=== PATIENT | female | born 1965 | race Caucasian/White ===

== ENCOUNTER → 2018-02-05 | Outpatient (CLI) | payer BC ==
[2018-02-05 08:19] LABS: BASO % 0.4 % (0.0-1.0); EOS # 0.2 10^3/uL (0.0-0.50); EOS % 2.8 % (0.0-3.0); HEMATOCRIT 40.3 % (36.0-47.0); HEMOGLOBIN 13.6 g/dl (12.0-15.5); IMMATURE GRANULOCYTE % 0.2 % (0-3.0); LYMPH # 1.5 10^3/uL (1.5-4.5); LYMPH % 27.2 % (24.0-44.0); MEAN CORPUSCULAR HEMOGLOBIN 29.8 pg (27.0-33.0); MEAN CORPUSCULAR HGB CONC 33.7 g/dl (32.0-36.5); MEAN CORPUSCULAR VOLUME 88.2 fl (80.0-96.0); MONO # 0.4 10^3/uL (0.0-0.8); MONO % 7.7 % (0.0-5.0); NEUTROPHILS # 3.4 10^3/uL (1.8-7.7); NEUTROPHILS % 61.7 % (36.0-66.0); PLATELET COUNT, AUTOMATED 187 10^3/uL (150-450); RED BLOOD COUNT 4.57 10^6/uL (4.00-5.40); RED CELL DISTRIBUTION WIDTH 13.1 % (11.5-14.5); WHITE BLOOD COUNT 5.4 10^3/uL (4.0-10.0)
[2018-02-05 08:45] LABS: ALBUMIN 3.7 GM/DL (3.2-5.2); ALBUMIN/GLOBULIN RATIO 1.23 (1.00-1.93); ALKALINE PHOSPHATASE 72 U/L (45-117); ALT/SGPT 25 U/L (12-78); ANION GAP 5 MEQ/L (8-16); AST/SGOT 9 U/L (7-37); BILIRUBIN,TOTAL 0.6 MG/DL (0.2-1.0); BLOOD UREA NITROGEN 16 MG/DL (7-18); CALCIUM LEVEL 8.5 MG/DL (8.5-10.1); CARBON DIOXIDE LEVEL 30 MEQ/L (21-32); CHLORIDE LEVEL 109 MEQ/L (98-107); CHOLESTEROL LEVEL 179 MG/DL (<200); CHOLESTEROL RISK RATIO 3.977 (<5); CREATININE FOR GFR 0.66 MG/DL (0.55-1.30); FREE T4 0.96 NG/DL (0.76-1.46); GLOMERULAR FILTRATION RATE > 60.0 (>51); GLUCOSE, FASTING 127 MG/DL (70-100); HDL CHOLESTEROL 45 MG/DL (>40); LDL CHOLESTEROL 116.6 MG/DL (<100); NON-HDL-C 134 MG/DL; POTASSIUM SERUM 4.3 MEQ/L (3.5-5.1); SODIUM LEVEL 144 MEQ/L (136-145); TOTAL PROTEIN 6.7 GM/DL (6.4-8.2); TRIGLYCERIDES LEVEL 87 MG/DL (<150)
== END ==
LOC: M LAB 07:48
DX: Z13.220 Encounter for screening for lipoid disorders (principal); I10 Essential (primary) hypertension; E66.3 Overweight
CPT/HCPCS: 84443

== ENCOUNTER 2018-03-31 09:57 | Day surgery (SDC) | payer BC ==
[2018-03-31] MEDS: NS 1,000 ML IV (06:00)
[2018-03-31] MEDS ORDERED: LIDOCAINE 2% INJ 100 MG/5 ML SDV (FOR ANES.) As Ordered (11:01)
[2018-03-31] MEDS ORDERED: PROPOFOL 200 MG/20 ML VIAL As Ordered (11:01)
== END 2018-03-31 12:05 | disposition home or self-care (01) ==
LOC: M OPP 09:57
DX: Z12.11 Encounter for screening for malignant neoplasm of colon (principal); D12.3 Benign neoplasm of transverse colon; K64.0 First degree hemorrhoids; I10 Essential (primary) hypertension; K21.9 Gastro-esophageal reflux disease without esophagitis; R12 Heartburn; M19.90 Unspecified osteoarthritis, unspecified site; Z87.39 Personal history of other diseases of the musculoskeletal system and connective tissue; Z88.8 Allergy status to other drugs, medicaments and biological substances; Z79.899 Other long term (current) drug therapy
CPT/HCPCS: 45385

== ENCOUNTER → 2018-07-29 | Outpatient (CLI) | payer BC ==
[~2018-07-29] MED LIST: IBUP80TA PO; MULTTAB4 PO; NORV5TAB PO; PERC2.5T PO
--- NOTE | 2018-07-29 10:00 | REPMRS ---
Patient History The patient states she has not had a clinical breast exam in over a year. Patient is postmenopausal. Family history of breast cancer at age 50 or over in paternal aunt, breast cancer at age 50 or over in paternal aunt, prostate cancer in paternal uncle. No Hormone Replacement Therapy Digital Woman Screen Mammo: July 29, 2018 - Exam #: [id number] Bilateral CC and MLO view(s) were taken. Technologist: Maddie Catherine, Technologist Prior study comparison: April 06, 2014, digital mammo diagnostic bilateral, performed at [facility]. March 15, 2013, digital woman screen mammo performed at [facility]. August 22, 2008, bilateral screening mammogram performed at [facility]. FINDINGS: There are scattered fibroglandular densities. There is a fairly large raised mole at projects over the right axilla unchanged. There has been no change in the appearance of the mammogram from the prior studies. There is a mild amount of scattered fibroglandular density which is fairly symmetric. There is no interval development of dominant mass, architectural distortion, or clustered microcalcification suggestive of malignancy. 3-D tomosynthesis shows no additional findings. Assessment: BI-RADS/ACR category 2 mammogram. Benign Findings. Recommendation Routine screening mammogram of both breasts in 1 year (for women over age 40). This patient's Lifetime Breast Cancer RIsk is estimated at 11.2 %. This mammogram was interpreted with the aid of an FDA-approved computer-aided dectection system. Electronically Signed By: David Velazquez MD 07/29/18 [id number]
== END ==
LOC: M WHC 06:44
PROVIDERS: ATTEND Physician Assistant Medical
DX: Z12.31 Encounter for screening mammogram for malignant neoplasm of breast (principal)

== ENCOUNTER → 2018-11-02 | Outpatient (CLI) | payer BC ==
[2018-11-02 08:26] LABS: BASO % 0.7 % (0.0-1.0); EOS # 0.2 10^3/uL (0.0-0.50); EOS % 2.8 % (0.0-3.0); HEMATOCRIT 40.7 % (36.0-47.0); HEMOGLOBIN 13.5 g/dl (12.0-15.5); LYMPH # 1.4 10^3/uL (1.5-4.5); LYMPH % 26.5 % (24.0-44.0); MEAN CORPUSCULAR HEMOGLOBIN 29.7 pg (27.0-33.0); MEAN CORPUSCULAR HGB CONC 33.2 g/dl (32.0-36.5); MEAN CORPUSCULAR VOLUME 89.5 fl (80.0-96.0); MONO # 0.5 10^3/uL (0.0-0.8); MONO % 8.5 % (0.0-5.0); NEUTROPHILS # 3.3 10^3/uL (1.8-7.7); NEUTROPHILS % 61.3 % (36.0-66.0); PLATELET COUNT, AUTOMATED 192 10^3/uL (150-450); RED BLOOD COUNT 4.55 10^6/uL (4.00-5.40); WHITE BLOOD COUNT 5.4 10^3/uL (4.0-10.0)
[2018-11-02 08:52] LABS: ALT/SGPT 29 U/L (12-78); BILIRUBIN,TOTAL 0.6 MG/DL (0.2-1.0); BLOOD UREA NITROGEN 14 MG/DL (7-18); CALCIUM LEVEL 8.8 MG/DL (8.5-10.1); CARBON DIOXIDE LEVEL 29 MEQ/L (21-32); CHLORIDE LEVEL 106 MEQ/L (98-107); CREATININE FOR GFR 0.66 MG/DL (0.55-1.30); GLOMERULAR FILTRATION RATE > 60.0 (>51); GLUCOSE, FASTING 90 MG/DL (70-100); POTASSIUM SERUM 3.6 MEQ/L (3.5-5.1); SODIUM LEVEL 141 MEQ/L (136-145); TOTAL PROTEIN 6.6 GM/DL (6.4-8.2)
[2018-11-02 10:39] LABS: HEMOGLOBIN A1c 5.9 %
== END ==
LOC: M LAB 07:32
PROVIDERS: ATTEND Physician Assistant Medical
DX: R73.01 Impaired fasting glucose (principal); I10 Essential (primary) hypertension

== ENCOUNTER → 2018-12-02 | Outpatient (CLI) | payer BC | LOC: M LAB 08:28 | PROVIDERS: ATTEND Physician Assistant Medical | DX: Z71.89 Other specified counseling (principal) ==

== ENCOUNTER → 2018-12-13 | Outpatient (REF) | payer BC | LOC: M SFHCPLAZ 09:18 | PROVIDERS: ATTEND Physician Assistant Medical | DX: Z02.1 Encounter for pre-employment examination (principal) ==

== ENCOUNTER → 2019-03-26 | Outpatient (CLI) | payer BC ==
[2019-03-26 14:41] LABS: HEMOGLOBIN A1c 5.5 %
== END ==
LOC: M LAB 13:58
PROVIDERS: ATTEND Physician Assistant Medical
DX: R73.01 Impaired fasting glucose (principal)

== ENCOUNTER → 2019-04-07 | Outpatient (CLI) | payer BC ==
--- NOTE | 2019-04-07 16:06 | REP ---
HISTORY: Nodule 5th digit. COMPARISON: None. FINDINGS: The joint spaces are symmetric and relatively well maintained. There is no evidence of acute fracture or destructive osseous lesion. There is evidence of soft tissue swelling involving the medial soft tissues at the level of the proximal phalanx of the 5th digit. Plain film examination evaluates this poorly. IMPRESSION: Focal soft tissue swelling as described above. MRI examination is recommended. Electronically Signed by Sunny Medina DO 04/07/2019 04:44 P
== END ==
LOC: M SMT 10:36
PROVIDERS: ATTEND Physician Assistant Medical
DX: R22.31 Localized swelling, mass and lump, right upper limb (principal)

== ENCOUNTER → 2019-04-16 | Outpatient (CLI) | payer BC ==
--- NOTE | 2019-04-16 10:59 | REP ---
REASON: Palpable mass, attention 5th digit. The technologist placed skin markers one proximal and the other distal to a palpable mass in the soft tissues of the 5th digit medially and proximally at the level of the proximal phalanx. There are no prior MRIs for comparison. In the medial soft tissues of the proximal aspect of the 5th digit, there is an oval-shaped 2.3 x 0.8 x 0.9 cm sized mixed signal mass. This abuts the medial cortex of the proximal phalanx of the 5th digit but there is no evidence of cortical erosion. The proximal aspect of the medial collateral ligament of the proximal interphalangeal joint of that digit appears somewhat thickened. The mass appears to be separate from and not involving The flexor and extensor tendons to that digit. The cortical and marrow signal seen throughout the 5th digit including the 5th metacarpal is within normal limits. There is no evidence of a joint effusion. IMPRESSION: There is a soft tissue mass involving the 5th digit as described above, the etiology of which is uncertain. It is of mixed signal but predominantly T1 prolongation and slight increased T2 signal. There are some associated findings as described above. Orthopaedic consultation is suggested. Electronically Signed by Sunny Medina DO 04/16/2019 12:17 P
== END ==
LOC: M RAD 08:44
PROVIDERS: ATTEND Physician Assistant Medical
DX: R22.31 Localized swelling, mass and lump, right upper limb (principal)

== ENCOUNTER 2019-09-02 09:12 | Emergency (ER) | payer BC ==
[~2019-09-02] VITALS: Ht 162.6 cm; Wt 74.7 kg
[2019-09-02 09:14] VITALS: BP 143/83
[2019-09-02] MEDS ORDERED: CYCLOBENZAPRINE 5MG TABLET PO ONE (09:45)
--- NOTE | 2019-09-02 10:11 | REP ---
Right rib series: Five views including PA chest. History: Right lateral rib pain. Comparison chest x-ray: August 10, 2014. Findings: PA chest x-ray is normal. There is no evidence of pneumothorax or hydrothorax. Mediastinum is not widened. Heart is not enlarged. Multiple views of the right ribcage show intact right ribs. There is no evidence of rib fracture or bony destructive lesion. There is a small nodular density in the right axillary soft tissues which projects over the lung and proximal humerus on different projections in this series. There is no evidence of pulmonary nodule. Impression: Negative right rib radiographs. Electronically Signed by Ryne Velazquez MD 09/02/2019 10:02 A
[2019-09-02] MEDS ORDERED: CYCL5TAB PO (10:27)
== END 2019-09-02 10:36 | disposition home or self-care (01) ==
LOC: M ED 09:12
DX: S29.011A Strain of muscle and tendon of front wall of thorax, initial encounter (principal); S20.211A Contusion of right front wall of thorax, initial encounter; X58.XXXA Exposure to other specified factors, initial encounter; Y92.89 Other specified places as the place of occurrence of the external cause; E11.9 Type 2 diabetes mellitus without complications; I10 Essential (primary) hypertension; K21.9 Gastro-esophageal reflux disease without esophagitis; Z79.899 Other long term (current) drug therapy; Z88.8 Allergy status to other drugs, medicaments and biological substances

== ENCOUNTER → 2019-10-15 | Outpatient (CLI) | payer BC ==
[~2019-10-15] MED LIST changes: +CYCL5TAB PO
== END ==
LOC: M LABSMTC 10:22
PROVIDERS: ATTEND Family Medicine
DX: Z11.59 Encounter for screening for other viral diseases (principal); Z20.828 Contact with and (suspected) exposure to other viral communicable diseases

== ENCOUNTER → 2020-02-07 | Outpatient (REF) | payer BC ==
[2020-03-05 15:04] LABS: BASO % 0.4 % (0.0-1.0); EOS # 0.1 10^3/uL (0.0-0.5); EOS % 1.4 % (0.0-3.0); HEMATOCRIT 43.5 % (36.0-47.0); HEMOGLOBIN 14.5 g/dl (12.0-15.5); LYMPH # 1.9 10^3/uL (1.5-5.0); LYMPH % 24.4 % (24.0-44.0); MEAN CORPUSCULAR HEMOGLOBIN 30.5 pg (27.0-33.0); MEAN CORPUSCULAR HGB CONC 33.3 g/dl (32.0-36.5); MEAN CORPUSCULAR VOLUME 91.4 fl (80.0-96.0); MONO # 0.5 10^3/uL (0.0-0.8); MONO % 6.2 % (0.0-5.0); NEUTROPHILS # 5.1 10^3/uL (1.5-8.5); NEUTROPHILS % 67.3 % (36.0-66.0); PLATELET COUNT, AUTOMATED 226 10^3/uL (150-450); RED BLOOD COUNT 4.76 10^6/uL (4.00-5.40); WHITE BLOOD COUNT 7.6 10^3/uL (4.0-10.0)
[2020-03-24 09:41] LABS: ALBUMIN 4.2 GM/DL (3.2-5.2); ALT/SGPT 27 U/L (12-78); BILIRUBIN,TOTAL 0.6 MG/DL (0.2-1.0); BLOOD UREA NITROGEN 9 MG/DL (7-18); CALCIUM LEVEL 9.3 MG/DL (8.5-10.1); CARBON DIOXIDE LEVEL 32 MEQ/L (21-32); CHLORIDE LEVEL 105 MEQ/L (98-107); CHOLESTEROL LEVEL 204 MG/DL (<200); CHOLESTEROL RISK RATIO 4.975 (<5); CREATININE FOR GFR 0.71 MG/DL (0.55-1.30); FREE T4 1.04 NG/DL (0.76-1.46); GLOMERULAR FILTRATION RATE > 60.0 (>51); GLUCOSE, FASTING 97 MG/DL (70-100); HDL CHOLESTEROL 41 MG/DL (>40); HEMOGLOBIN A1c 5.7 %; LDL CHOLESTEROL 135 MG/DL (<100); NON-HDL-C 163 MG/DL; SODIUM LEVEL 138 MEQ/L (136-145); THYROID STIMULATING HORMONE 0.991 uIU/ML (0.358-3.740); TOTAL PROTEIN 7.1 GM/DL (6.4-8.2); TRIGLYCERIDES LEVEL 142 MG/DL (<150)
== END ==
LOC: M SFHCPLAZ 15:58
PROVIDERS: ATTEND Physician Assistant Medical
DX: E66.3 Overweight (principal); I10 Essential (primary) hypertension; R73.01 Impaired fasting glucose; Z13.220 Encounter for screening for lipoid disorders

== ENCOUNTER → 2020-06-25 | Outpatient (CLI) | payer BC ==
--- NOTE | 2020-06-25 10:02 | REPMRS ---
Patient History The patient states she has not had a clinical breast exam in over a year. Family history of breast cancer at age 50 or over in paternal aunt, breast cancer at age 50 or over in paternal aunt, prostate cancer in paternal uncle. No Hormone Replacement Therapy 3D TOMOSYNTHESIS WAS PERFORMED. The Abdoulaye Khan lifetime risk for breast cancer is 10.7%. Volpara breast density b. Digital Woman Screen Mammo: June 25, 2020 - Exam #: [id number] Bilateral CC and MLO view(s) were taken. Technologist: Rosa Loera, Technologist Prior study comparison: July 29, 2018, bilateral digital woman screen mammo performed at [facility]. April 06, 2014, digital mammo diagnostic bilateral, performed at [facility]. FINDINGS: There are scattered fibroglandular densities. There has been no change in the appearance of the mammogram from the prior studies. There is a mild amount of residual fibroglandular tissue which is fairly symmetric. There is no interval development of dominant mass, architectural distortion, or clustered microcalcification suggestive of malignancy. Assessment: BI-RADS/ACR category 1 mammogram. Negative Mammogram. Recommendation Routine screening mammogram in 1 year (for women over age 40). This mammogram was interpreted with the aid of an FDA-approved computer-aided dectection system. Electronically Signed By: Chidi Wharton MD 06/25/20 2035
--- NOTE | 2020-06-25 11:19 | DEXAMM ---
INDICATION: POSTMENOPAUSAL BONE LOSS. COMPARISON: None. TECHNIQUE: Bone density was measured using dual-energy x-ray absorptiometry (DEXA). FINDINGS: AP SPINE L1-L4 BMD 0.965 g/cm2 Young Adult T-Score -1.9 Age Matched Z-Score -0.9. LT FEMUR, TOTAL BMD 0.931 g/cm2 Young Adult T-Score -0.6 Age Matched Z-Score 0.2. LT NECK BMD 0.867 g/cm2 Young Adult T-Score -1.2 Age Matched Z-Score -0.1. RT FEMUR, TOTAL BMD 0.877 g/cm2 Young Adult T-Score -1.0 Age Matched Z-Score -0.3. RT NECK BMD 0.842 g/cm2 Young Adult T-Score -1.4 Age Matched Z-Score -0.3. IMPRESSION: There is low bone density of the spine. There is low bone density of the left hip. There is low bone density of the right hip. FOLLOW-UP: Recommendation for the next bone density exam: 2 years. <Electronically signed by Chidi Wharton > 06/25/20 0958
== END ==
LOC: M WHC 07:53
PROVIDERS: ATTEND Physician Assistant Medical
DX: Z12.31 Encounter for screening mammogram for malignant neoplasm of breast (principal); M81.0 Age-related osteoporosis without current pathological fracture; M85.88 Other specified disorders of bone density and structure, other site; M85.851 Other specified disorders of bone density and structure, right thigh; M85.852 Other specified disorders of bone density and structure, left thigh

== ENCOUNTER 2020-09-29 23:37 | Emergency (ER) | payer BC, OTHER ==
[~2020-09-29] VITALS: Ht 162.6 cm; Wt 76.2 kg
[2020-09-29 23:38] VITALS: BP 151/86
[2020-09-30 00:17] LABS: BASO # 0.1 10^3/uL (0.0-0.2); BASO % 0.8 % (0.0-1.0); EOS # 0.2 10^3/uL (0.0-0.5); EOS % 3.4 % (0.0-3.0); HEMATOCRIT 39.8 % (36.0-47.0); HEMOGLOBIN 13.8 g/dl (12.0-15.5); LYMPH # 2.2 10^3/uL (1.5-5.0); LYMPH % 34.2 % (24.0-44.0); MEAN CORPUSCULAR HEMOGLOBIN 30.5 pg (27.0-33.0); MEAN CORPUSCULAR HGB CONC 34.7 g/dl (32.0-36.5); MEAN CORPUSCULAR VOLUME 87.9 fl (80.0-96.0); MONO # 0.5 10^3/uL (0.0-0.8); MONO % 8.1 % (2.0-8.0); NEUTROPHILS # 3.4 10^3/uL (1.5-8.5); NEUTROPHILS % 52.9 % (36.0-66.0); PLATELET COUNT, AUTOMATED 214 10^3/uL (150-450); RED BLOOD COUNT 4.53 10^6/uL (4.00-5.40); WHITE BLOOD COUNT 6.4 10^3/uL (4.0-10.0)
[2020-09-30 00:36] LABS: ALT/SGPT 28 U/L (12-78); BILIRUBIN,TOTAL 0.3 MG/DL (0.2-1.0); BLOOD UREA NITROGEN 17 MG/DL (7-18); CALCIUM LEVEL 9.2 MG/DL (8.5-10.1); CARBON DIOXIDE LEVEL 26 MEQ/L (21-32); CHLORIDE LEVEL 109 MEQ/L (98-107); CREATININE FOR GFR 0.62 MG/DL (0.55-1.30); GLOMERULAR FILTRATION RATE > 60.0 (>51); GLUCOSE, FASTING 122 MG/DL (70-100); POTASSIUM SERUM 3.7 MEQ/L (3.5-5.1); SODIUM LEVEL 142 MEQ/L (136-145); TOTAL PROTEIN 6.9 GM/DL (6.4-8.2)
[2020-09-30 01:23] LABS: HIV SCREEN CENTAUR EXPOSED NEGATIVE (NEGATIVE)
[2020-09-30 01:38] LABS: HCG, SERUM QUALITATIVE NEGATIVE (NEGATIVE)
[2020-10-01 12:07] LABS: HEPATITIS B SURFACE ANTIBODY POSITIVE (POSITIVE)
[2020-10-01 12:17] LABS: HEPATITIS B SURFACE ANTIGEN NEGATIVE (NEGATIVE)
[2020-10-01 12:46] LABS: HEPATITIS C VIRUS ABY INDEX < 0.0 INDEX (<0.8)
== END 2020-09-30 00:23 | disposition home or self-care (01) ==
LOC: M ED 23:37
DX: Z77.21 Contact with and (suspected) exposure to potentially hazardous body fluids (principal); S61.233A Puncture wound without foreign body of left middle finger without damage to nail, initial encounter; W46.0XXA Contact with hypodermic needle, initial encounter; Y92.238 Other place in hospital as the place of occurrence of the external cause; Y99.0 Civilian activity done for income or pay; I10 Essential (primary) hypertension; Z79.899 Other long term (current) drug therapy; Z88.8 Allergy status to other drugs, medicaments and biological substances

== ENCOUNTER → 2020-10-23 | Outpatient (REF) | payer BC ==
[2020-10-23 16:02] LABS: BASO % 0.8 % (0.0-1.0); EOS # 0.2 10^3/uL (0.0-0.5); EOS % 4.2 % (0.0-3.0); HEMATOCRIT 41.8 % (36.0-47.0); LYMPH # 1.7 10^3/uL (1.5-5.0); LYMPH % 32.9 % (24.0-44.0); MEAN CORPUSCULAR HEMOGLOBIN 30.2 pg (27.0-33.0); MEAN CORPUSCULAR HGB CONC 33.5 g/dl (32.0-36.5); MEAN CORPUSCULAR VOLUME 90.1 fl (80.0-96.0); MONO # 0.4 10^3/uL (0.0-0.8); MONO % 8.5 % (2.0-8.0); NEUTROPHILS # 2.7 10^3/uL (1.5-8.5); NEUTROPHILS % 53.2 % (36.0-66.0); PLATELET COUNT, AUTOMATED 205 10^3/uL (150-450); RED BLOOD COUNT 4.64 10^6/uL (4.00-5.40); WHITE BLOOD COUNT 5.1 10^3/uL (4.0-10.0)
[2020-10-23 16:30] LABS: ALBUMIN 4.2 GM/DL (3.2-5.2); ALT/SGPT 30 U/L (12-78); BILIRUBIN,TOTAL 0.4 MG/DL (0.2-1.0); BLOOD UREA NITROGEN 13 MG/DL (7-18); CALCIUM LEVEL 9.3 MG/DL (8.5-10.1); CARBON DIOXIDE LEVEL 29 MEQ/L (21-32); CHLORIDE LEVEL 107 MEQ/L (98-107); CREATININE FOR GFR 0.56 MG/DL (0.55-1.30); FREE T4 0.93 NG/DL (0.76-1.46); GLOMERULAR FILTRATION RATE > 60.0 (>51); GLUCOSE, FASTING 92 MG/DL (70-100); POTASSIUM SERUM 4.1 MEQ/L (3.5-5.1); SODIUM LEVEL 141 MEQ/L (136-145); TOTAL PROTEIN 7.1 GM/DL (6.4-8.2)
[2020-10-23 17:18] LABS: HEMOGLOBIN A1c 5.5 %
== END ==
LOC: M SFHCPLAZ 12:17
PROVIDERS: ATTEND Physician Assistant Medical
DX: R73.01 Impaired fasting glucose (principal); I10 Essential (primary) hypertension; E66.3 Overweight; Z13.220 Encounter for screening for lipoid disorders

== ENCOUNTER → 2021-06-07 | Outpatient (REF) | LOC: M EMP 14:16 | PROVIDERS: ATTEND Family Medicine | DX: Z20.822 Contact with and (suspected) exposure to COVID-19 (principal) ==

== ENCOUNTER → 2021-06-12 | Outpatient (REF) | LOC: M LABSMTC 10:44 | PROVIDERS: ATTEND Pediatrics | DX: Z20.822 Contact with and (suspected) exposure to COVID-19 (principal) ==

== ENCOUNTER → 2021-10-08 | Outpatient (REF) ==
[2021-10-08 11:23] LABS: RSV AMPLIFICATION NEGATIVE (NEGATIVE)
== END ==
LOC: M EMP 08:08
PROVIDERS: ATTEND Family Medicine
DX: Z11.52 Encounter for screening for COVID-19 (principal)

== ENCOUNTER 2022-08-30 10:08 | Emergency (ER) | payer BC ==
[~2022-08-30] VITALS: Ht 162.6 cm; Wt 30.6 kg
[2022-08-30 10:09] VITALS: BP 168/90
[2022-08-30] MEDS ORDERED: IBUP200C25 PO (10:31)
== END 2022-08-30 12:53 | disposition home or self-care (01) ==
LOC: M ED 10:08
DX: S00.83XA Contusion of other part of head, initial encounter (principal); Y92.099 Unspecified place in other non-institutional residence as the place of occurrence of the external cause; I10 Essential (primary) hypertension; Z88.8 Allergy status to other drugs, medicaments and biological substances

== ENCOUNTER → 2022-10-03 | Outpatient (REF) ==
[~2022-10-03] MED LIST changes: +IBUP200C25 PO
[2022-10-03 13:27] LABS: RSV AMPLIFICATION NEGATIVE (NEGATIVE)
== END ==
LOC: M LABSMTC 11:38
PROVIDERS: ATTEND Family Medicine
DX: Z20.828 Contact with and (suspected) exposure to other viral communicable diseases (principal)

== ENCOUNTER → 2022-12-02 | Outpatient (REF) | LOC: M EMP 09:25 | PROVIDERS: ATTEND Family Medicine | DX: Z20.822 Contact with and (suspected) exposure to COVID-19 (principal) ==

== ENCOUNTER → 2023-04-17 | Outpatient (REF) | LOC: M EMP 12:07 | PROVIDERS: ATTEND Family Medicine | DX: Z11.52 Encounter for screening for COVID-19 (principal) ==

== ENCOUNTER → 2023-12-21 | Outpatient (REF) | LOC: M EMP 08:38 | PROVIDERS: ATTEND Family Medicine | DX: Z20.822 Contact with and (suspected) exposure to COVID-19 (principal) ==

== ENCOUNTER 2024-04-05 20:03 | Emergency (ER) | payer OTHER, BC ==
[~2024-04-05] VITALS: Ht 162.6 cm; Wt 68.9 kg
[2024-04-05 20:08] VITALS: BP 170/89; TEMP 97.6; O2SAT 97
[2024-04-05 20:35] LABS: BASO % 0.6 % (0.0-1.0); EOS # 0.2 10^3/uL (0.0-0.5); EOS % 2.2 % (0.0-3.0); HEMATOCRIT 39.5 % (36.0-47.0); HEMOGLOBIN 13.5 g/dl (12.0-15.5); LYMPH % 29.5 % (24.0-44.0); MEAN CORPUSCULAR HEMOGLOBIN 30.3 pg (27.0-33.0); MEAN CORPUSCULAR HGB CONC 34.2 g/dl (32.0-36.5); MEAN CORPUSCULAR VOLUME 88.6 fl (80.0-96.0); MONO # 0.5 10^3/uL (0.0-0.8); NEUTROPHILS # 4.1 10^3/uL (1.5-8.5); NEUTROPHILS % 60.4 % (36.0-66.0); PLATELET COUNT, AUTOMATED 211 10^3/uL (150-450); RED BLOOD COUNT 4.46 10^6/uL (4.00-5.40); WHITE BLOOD COUNT 6.7 10^3/uL (4.0-10.0)
[2024-04-05 21:04] LABS: ALBUMIN 4.1 G/DL (3.2-5.2); ALKALINE PHOSPHATASE 65 U/L (46-116); ALT/SGPT 16 U/L (7.0-40); AST/SGOT 12 U/L (<34); BILIRUBIN,TOTAL 0.6 MG/DL (0.3-1.2); BLOOD UREA NITROGEN 11 MG/DL (9-23); CALCIUM LEVEL 9.5 MG/DL (8.3-10.6); CARBON DIOXIDE LEVEL 24 MMOL/L (20-31); CHLORIDE LEVEL 110 MMOL/L (98-107); CREATININE FOR GFR 0.58 MG/DL (0.55-1.30); GLOMERULAR FILTRATION RATE > 60.0 (>45); GLUCOSE, FASTING 102 MG/DL (74-106); POTASSIUM SERUM 3.9 MMOL/L (3.5-5.1); SODIUM LEVEL 140 MMOL/L (136-145); TOTAL PROTEIN 6.8 G/DL (5.7-8.2)
[2024-04-05 21:06] LABS: HEPATITIS B SURFACE ANTIBODY POSITIVE (POSITIVE)
[2024-04-05 21:19] LABS: HEPATITIS B SURFACE ANTIGEN NEGATIVE (NEGATIVE)
[2024-04-05 21:31] LABS: HIV SCREEN CENTAUR EXPOSED NEGATIVE (NEGATIVE)
[2024-04-05 21:38] LABS: HEPATITIS C VIRUS ABY INDEX 0.06 INDEX (<0.8)
== END 2024-04-05 21:09 | disposition home or self-care (01) ==
LOC: M ED 20:03
DX: Z77.21 Contact with and (suspected) exposure to potentially hazardous body fluids (principal); W46.0XXA Contact with hypodermic needle, initial encounter; Z88.8 Allergy status to other drugs, medicaments and biological substances; Z79.1 Long term (current) use of non-steroidal anti-inflammatories (NSAID)

== ENCOUNTER 2024-07-23 11:01 | Emergency (ER) | payer BC, OTHER ==
[~2024-07-23] VITALS: Ht 165.1 cm; Wt 70.3 kg
[~2024-07-23 11:01] MED LIST changes: -CYCL5TAB PO; +CYCL5TAB4 PO
[2024-07-23] MEDS ORDERED: ACET32TAB PO (11:15)
[2024-07-23] MEDS: LIDOCAINE 5% (LIDODERM) PATCH TD ONE (12:25)
[2024-07-23] MEDS: KETOROLAC 30 MG/ML 1ML VIAL IM ONE (12:29)
[2024-07-23 13:15] VITALS: BP 160/90; TEMP 96.5; O2SAT 98
[2024-07-23] MEDS ORDERED: KETO10TAB PO (14:00)
[2024-07-23] MEDS ORDERED: MEDR4PAK PO (14:00)
[2024-07-23] MEDS ORDERED: LIDO5DIS41 TD (14:00)
== END 2024-07-23 14:11 | disposition home or self-care (01) ==
LOC: M ED 11:01
DX: M54.32 Sciatica, left side (principal); M47.896 Other spondylosis, lumbar region; E11.9 Type 2 diabetes mellitus without complications; I10 Essential (primary) hypertension; Z88.8 Allergy status to other drugs, medicaments and biological substances
CPT/HCPCS: 72131; 96372; 99283; J1100; J1885

== ENCOUNTER → 2024-10-05 | Outpatient (REF) ==
[~2024-10-05] MED LIST changes: +ACET32TAB PO; +KETO10TAB PO; +LIDO5DIS41 TD; +MEDR4PAK PO
== END ==
LOC: M EMP 11:08
PROVIDERS: ATTEND Family Medicine
DX: Z20.822 Contact with and (suspected) exposure to COVID-19 (principal)

== ENCOUNTER → 2025-05-22 | Outpatient (REF) | payer OTHER ==
[~2025-05-22] MED LIST changes: +LIDO1ADH93 TD; -LIDO5DIS41 TD; +OMEP40CA5 PO
[2025-05-22 18:49] LABS: C REACTIVE PROTEIN QUANTITATIV < 0.50 MG/DL (<1.0)
== END ==
LOC: M LAB REF 17:10
PROVIDERS: ATTEND Nurse Practitioner Family
DX: M79.673 Pain in unspecified foot (principal)